=== PATIENT | male | born 1955 | race Caucasian/White ===

== ENCOUNTER 2022-10-01 11:09 | Day surgery (SDC) | payer SELFPAY ==
[2022-09-27 15:39] LABS: ALBUMIN 3.9 G/DL (3.4-5.0); ALBUMIN/GLOBULIN RATIO 1.4 (1.1-1.5); ALKALINE PHOSPHATASE 61 IU/L (46-116); BLOOD UREA NITROGEN 24 MG/DL (7-18); BUN/CREATININE RATIO 21.1 (5.4-32.0); CALCIUM 8.7 MG/DL (8.5-10.1); CHLORIDE 105 MMOL/L (99-107); CREATININE 1.14 MG/DL (0.60-1.10); PRE OP ALT 24 U/L (30-65); PRE OP ANION GAP 8 (8-16); PRE OP AST 19 U/L (10-37); PRE OP BILIRUB, TOTAL 0.5 MG/DL (0.0-1.0); PRE OP GLUCOSE 93 MG/DL (70-104); PRE OP SODIUM 140 MMOL/L (135-145); TOTAL CARBON DIOXIDE 27.5 MMOL/L (24-32); TOTAL PROTEIN 6.6 G/DL (6.4-8.2); eGFR 64 ML/MIN
[2022-09-27 15:41] LABS: BASOPHILS % (AUTO) 0.5 % (0-1); EOSINOPHILS # (AUTO) 0.2 X10'3 (0-0.9); EOSINOPHILS % (AUTO) 5.3 % (0-6); LYMPHOCYTES # (AUTO) 1.2 X10'3 (1.1-4.8); LYMPHOCYTES % (AUTO) 27.7 % (21-51); MEAN CORPUSCULAR HEMOGLOBIN 32.9 PG (27.0-31.0); MEAN CORPUSCULAR VOLUME 96.9 FL (78-98); MEAN PLATELET VOLUME 7.2 FL (7.4-10.4); MONOCYTES # (AUTO) 0.3 X10'3 (0-0.9); MONOCYTES % (AUTO) 7.1 % (2-12); NEUTROPHILS # (AUTO) 2.6 X10'3 (1.8-7.7); NEUTROPHILS % (AUTO) 59.4 % (42-75); PRE OP HEMATOCRIT 39.4 % (42.0-52.0); PRE OP HEMOGLOBIN 13.4 g/dL (14.0-17.9); PRE OP PLATELET COUNT 204 X10'3 (140-440); RED BLOOD COUNT 4.07 X10'6 (4.70-6.10); RED CELL DISTRIBUTION WIDTH 12.3 % (11.5-14.5)
[~2022-10-01] VITALS: Ht 180.3 cm; Wt 78.5 kg
[2022-10-01] VITALS (11 sets, daily range): BP systolic 109–124; BP diastolic 68–78
[~2022-10-01 11:09] MED LIST: COLLAGEN PO; COLLAGEN PROTEIN PO; GREEN PO; JOINT PO; OMEGA PO; VIT D PO; VIT PO; ZINC PO; ceFAZolin inj. 2,000 MG in dextrose 5%-water 100 ML IV ONE; famotidine 20mg tablet PO ONE; ringers solution, lacted 1,000 ML IV SCH
--- NOTE | 2022-10-01 12:15 | NUR ---
ACCUCHECK 63. PT ASYMPTOMATIC. D5W 100MLS TOTAL VOLUME ORDERED BY DR FISHMAN.
[2022-10-01] MEDS ORDERED: dextrose 5%-water 1,000 ML IV SCH (12:25)
--- NOTE | 2022-10-01 13:05 | NUR ---
ACCUCHECK 74 POST D5W 100ML INFUSION. PT DENIES ANY COMPLAINTS, RESTING WITH AT THE BEDSIDE. DR FISHMAN NOTIFIED. NO NEW ORDERS.
[2022-10-01] MEDS ORDERED: meperidine/PF 25mg/ml syringe IV PRN ×3 (13:10)
[2022-10-01] MEDS ORDERED: ringers solution, lacted 1,000 ML IV SCH (13:10)
[2022-10-01] MEDS ORDERED: proCHLORperazine 10 MG/2 ml inj IV PRN (13:10)
[2022-10-01] MEDS ORDERED: morphine 4 MG/ML inj SYRINge IV PRN (13:10)
[2022-10-01] MEDS ORDERED: morphine 2 MG/ML inj. syringe IV PRN (13:10)
[2022-10-01] MEDS ORDERED: ondansetron/PF 4mg/2ml inj IV PRN (13:10)
[2022-10-01] MEDS ORDERED: BUPIVAcaine 0.5% inj/PF 30 ML ONE (13:20)
[2022-10-01] MEDS ORDERED: LIDOcaine 1% 30ml preserv. free vial ONE (13:20)
[2022-10-01] MEDS ORDERED: fentaNYL /PF 50mcg/ml 5ml ampule ONE (13:55)
[2022-10-01] MEDS ORDERED: midazolam 1 mg/ML 2ml injection ONE (13:55)
[2022-10-01] MEDS ORDERED: propofol inj 20 ML IV ONE (14:03)
[2022-10-01] MEDS ORDERED: ondansetron/PF 4mg/2ml inj ONE (14:03)
[2022-10-01] MEDS ORDERED: rocuronium 10mg/ml inj IV ONE ×2 (14:03)
[2022-10-01] MEDS ORDERED: BUPIVAcaine 0.5% inj/PF 30 ml vial IJ ONE (14:17)
[2022-10-01] MEDS ORDERED: LIDOcaine 1% 30ml preserv. free vial IJ ONE (14:17)
[2022-10-01] MEDS ORDERED: acetaminophen 1,000mg/100ml IV 100 ML IV ONE (14:59)
[2022-10-01] MEDS ORDERED: HYDROcodone/acetaminophen 5mg/325mg tablet PO PRN (15:25)
--- NOTE | 2022-10-01 15:25 | NUR ---
Received from OR via [facility], accompanied by Anesthesiologist DR KRAUS and report given by Anesthesiolgist. PT IS GROGGY AND HAS ORAL AIRWAY IN PLACE. PT IS GROGGY BUT ROUSES TO VERBAL STIMULI AND IS ABLE TO HERRERA. PT PLACED ON BEDSIDE MONITOR, VSS. PT SB WITH RATE IN HIGH 50'S. PT RECEIVING 8L O2 TO MASK AND TOLERATING WELL WITH O2 SAT >96%, WILL TITRATE DOWN PT TOLERATES. PT HAS 20G PIV TO LEFT WRIST WITH LR INFUSING ORDERED. PT HAS BANDAID X3 TO MID ABD THAT ARE AL CDI. PT IS RESTING WITH NO S/S OF DISTRESS OR DISCOMFORT NOTED AT THIS TIME. WILL CONTINUE TO ASSESS
--- NOTE | 2022-10-01 17:20 | NUR ---
1710- PT TAKEN OFF MONITOR TO VOID. PT WAS ABLE TO VOID 125ML. BLADDER SCAN PERFORMED POST VOID AND PT HAD < 70ML IN BLADDER. PT STATED HE WAS ABLE TO VOID EASILY WITHOUT ANY STRAIN. WILL GET PT DRESSED AND MOVED TOWARD DISCHARGE.
--- NOTE | 2022-10-01 17:45 | NUR ---
PATIENT A&OX4, DENIES PAIN, V/S WNL, SCD OFF, 20G TO LT WRIST D/C. PT ABLE TO VOID. I HAVE REVIEWED D/C INSTRUCTIONS WITH PATIENT INSTRUCTIONS WITH PATIENT AND THEY HAVE VERBALIZED UNDERSTANDING. PATIENT D/C HOME WITH ALL BELONGINGS AND [facility] TRANSPORTED PATIENT HOME.
== END 2022-10-01 17:42 | disposition home or self-care (01) ==
LOC: PAS 11:09
PROVIDERS: ATTEND Surgery
DX: K40.90 Unilateral inguinal hernia, without obstruction or gangrene, not specified as recurrent (principal); Z79.899 Other long term (current) drug therapy; Z98.890 Other specified postprocedural states; Z98.52 Vasectomy status; Z86.73 Personal history of transient ischemic attack (TIA), and cerebral infarction without residual deficits
CPT/HCPCS: 36415; 49650; 80053; 82948; 85025; 93005; C1781; J0131; J0690; J2250; J2405; J2704; J3010; J3490; J7030; J7060; J7070; J7120; S0020; S2900; Z7506; Z7508; Z7512; A4215; A4618